=== PATIENT | female | born 1960 | race Caucasian/White ===

== ENCOUNTER 2020-09-27 12:01 | Outpatient (REF) | payer MEDICARE, MEDICAID, SELFPAY ==
--- NOTE | 2020-09-27 | XR_ITS ---
EXAMINATION: XR CHEST CLINICAL INFORMATION: Cough COMPARISON: Chest radiographs 09/01/2019, 02/06/2019 TECHNIQUE: 2 views of the chest were obtained. FINDINGS: There is no lobar or segmental airspace consolidation. Some areolar tissue again noted adjacent to left cardiac border is similar to prior studies. There is no airspace consolidation or groundglass opacity or effusion. The heart is normal in size and the hilar and mediastinal contours are unremarkable. No acute bony abnormality. There is calcific tendinosis adjacent to left humeral head. XR/XR chest 2V IMPRESSION: Unremarkable examination.
== END 2020-09-27 12:02 | disposition home or self-care (01) ==
LOC: HO.HMGCX 12:01
PROVIDERS: Visit Provider Internal Medicine Critical Care Medicine
DX: R05 Cough (principal); J43.9 Emphysema, unspecified
CPT/HCPCS: 71046

== ENCOUNTER 2020-11-01 09:17 | Outpatient (REF) | payer MEDICARE, MEDICAID, SELFPAY ==
[2020-11-01 10:34] LABS: MANUAL DIFF FLAG NO
[2020-11-01 10:35] LABS: Basophils Percent Auto 0.4 % (0-2); Eosinophils Absolute Auto 0.2 X10*3/uL (0.0-0.4); Eosinophils Percent Auto 3.1 % (0-4); Hematocrit 39.7 % (37-47); Hemoglobin 12.5 g/dl (12.0-16.0); Imm Gran Abs Auto 0.02 X10*3/uL (0.00-0.03); Imm Gran Pct Auto 0.3 % (0.0-0.4); Lymphocytes Absolute Auto 1.2 X10*3/uL (1.2-4.9); Lymphocytes Percent Auto 15.6 % (20-40); Mean Corpuscular HGB Conc 31.5 g/dl (31.0-35.0); Mean Corpuscular Volume 95.4 fL (80-98); Mean Platelet Volume 10.4 fL (9.4-12.3); Monocytes Absolute Auto 0.7 X10*3/uL (0.1-1.2); Monocytes Percent Auto 9.9 % (2-11); Neutrophils Absolute Auto 5.3 X10*3/uL (2.0-8.3); Neutrophils Percent Auto 70.7 % (45-73); Platelet Count 287 X10*3/uL (160-400); Red Blood Count 4.16 X10*6/uL (4.20-5.50); Red Cell Distribution Width 12.8 % (11.0-16.0); White Blood Count 7.5 X10*3/uL (4.8-10.8)
[2020-11-01 11:07] LABS: Alanine Aminotransferase 15 U/L (0-31); Albumin Level 4.5 g/dL (3.5-5.0); Alkaline Phosphatase 97 U/L (39-117); Aspartate Amino Transferase 18 U/L (5-31); Bilirubin Total 0.6 mg/dL (0.0-1.0); Blood Urea Nitrogen 23 mg/dL (9-16); Calcium 10.2 mg/dL (8.4-10.2); Estimated Glomerular Filt Rate > 60; Glucose Random 90 mg/dL (60-115); Total Protein 6.9 g/dL (6.5-8.0)
[2020-11-01 11:25] LABS: Anion Gap 11 (12-20); Carbon Dioxide 41 mmol/L (22-29); Chloride 93 mmol/L (96-108); Potassium 4.3 mmol/L (3.3-5.1); Sodium 141 mmol/L (135-145)
[2020-11-01 12:43] LABS: Pt Ventilation O2% 2 L
[2020-11-01 12:47] LABS: Base Excess ABG 12.3; HCO3 ABG 40 mmol/L (22-26); PO2 ABG 98 mmHg (83-108)
[2020-11-01 12:50] LABS: pH ABG 7.38 (7.35-7.45)
[2020-11-01 12:54] LABS: ABG PCO2 67 mmHg (32-45)
== END 2020-11-01 09:18 | disposition home or self-care (01) ==
LOC: HO.LAB 09:17
PROVIDERS: PCP Internal Medicine; Visit Provider Internal Medicine
DX: J44.9 Chronic obstructive pulmonary disease, unspecified (principal); F32.9 Major depressive disorder, single episode, unspecified; F41.9 Anxiety disorder, unspecified
CPT/HCPCS: 36415; 80053; 82803; 85025

== ENCOUNTER 2020-11-06 14:03 | Outpatient (REF) | payer MEDICARE, MEDICAID, SELFPAY ==
--- NOTE | ~2020-11-06 | MM_ITS ---
EXAMINATION: MM SCREENING DIGITAL BREAST TOMOSYNTHESIS, BILATERAL CLINICAL INFORMATION: Screening. Asymptomatic. The lifetime risk of breast cancer based on the Tyrer-Cuzick Model is 6%. COMPARISON: Mammography: 11/01/2019, 10/26/2018, 04/08/2018 TECHNIQUE: Digital breast tomosynthesis is performed in both the craniocaudal and mediolateral oblique views along with computer-aided detection (CAD). Synthesized 2D images are generated from the tomosynthesis. Additional left CC view is provided. FINDINGS: There are scattered areas of fibroglandular density (ACR BI-RADS breast composition Category b). Parenchymal pattern is similar to prior studies. There is no interval mass or developing density or architectural abnormality. No abnormal calcifications. Incidental small right axillary tail node on MLO view is stable. Again, there are stable grouped benign coarse calcifications anterior 3:30 o'clock right breast and some dermal calcifications again seen posterior medial left breast. MM/MM tomosynthesis screening BI IMPRESSION: No mammographic evidence of malignancy. ASSESSMENT: BI-RADS 2: Benign RECOMMENDATION: Routine annual mammography screening. This patient's information was entered into a reminder system with a target due date for their next mammogram.
== END 2020-11-06 14:04 | disposition home or self-care (01) ==
LOC: HO.MAMMO 14:03
PROVIDERS: PCP Internal Medicine; Visit Provider Internal Medicine
DX: Z12.31 Encounter for screening mammogram for malignant neoplasm of breast (principal)
CPT/HCPCS: 77063; 77067

== ENCOUNTER 2020-11-08 12:14 | Outpatient (REF) | payer MEDICARE, MEDICAID, SELFPAY ==
[2020-11-08 12:49] LABS: HCO3 ABG 40 mmol/L (22-26); PO2 ABG 83 mmHg (83-108)
[2020-11-08 12:54] LABS: ABG PCO2 63 mmHg (32-45)
== END 2020-11-08 12:15 | disposition home or self-care (01) ==
LOC: HO.LAB 12:14
PROVIDERS: PCP Internal Medicine; Visit Provider Internal Medicine
DX: J44.9 Chronic obstructive pulmonary disease, unspecified (principal)
CPT/HCPCS: 82803

== ENCOUNTER 2020-12-11 12:36 | Outpatient (REF) | payer MEDICARE, MEDICAID, SELFPAY ==
[2020-12-11 13:56] LABS: ABG pH 7.42 (7.35-7.45); ABG pO2 103 mmHg (83-108)
[2020-12-11 13:57] LABS: ABG Base Excess 12.6 mmol/L; ABG HCO3 39 mmol/L (22-26)
[2020-12-11 13:59] LABS: ABG pCO2 59 mmHg (32-45)
== END 2020-12-11 12:37 | disposition home or self-care (01) ==
LOC: HO.LAB 12:36
PROVIDERS: PCP Internal Medicine; Visit Provider Internal Medicine
DX: Z13.89 Encounter for screening for other disorder (principal)

== ENCOUNTER 2021-05-23 17:55 | Emergency (ER) | payer MEDICARE, MEDICAID, SELFPAY ==
[2021-05-23] MEDS: EPINEPHrine 1 MG/ML VIAL IVPUSH (18:00)
[2021-05-23 18:22] LABS: COVID-19 Test Negative (Negative)
--- NOTE | 2021-05-23 18:34 | ED_ITS ---
HPI - CPR General Chief Complaint: Cardiac Arrest/CPR Stated Complaint: CARDIAC ARREST Time Seen by Provider: 05/23/21 18:05 Source: family and EMS Mode of arrival: EMS Limitations: other (Cardiac arrest) History of Present Illness HPI narrative: 61-year-old female who presents emergency department for evaluation of found unresponsive. According to the family, the patient has had a cold which involved nasal congestion and a cough x2 days. The patient was taking Mucinex for the cough. Family states that the patient went into her room at about noon time. Family member went to check on the patient and found the patient lying face down in her bed, unresponsive. The patient was apparently incontinent of urine. Patient was unresponsive. 911 was activated. Paramedics found the patient to be warm. The patient had no spontaneous respirations. She had no pulses. The the patient was intubated and the 1st rhythm was asystole. The patient was treated with epinephrine x7 doses, CPR was done with a [place] device. The paramedics state that throughout the entire resuscitation the patient was asystolic with no return of spontaneous circulation. Presentation to the emergency department, the patient was unresponsive with no pulses. Her initial rhythm was asystole. She was getting CPR through the [place] device. Patient was given epinephrine 1 mg IV. After 2 minutes, pulse recheck revealed that she had no pulse, she was asystolic on the monitor. The patient was pronounced at 6:02 p.m. The patient's family (sister, 2 daughters, and niece) were here in the emergency department. I did inform them of the patient's . Related Data Home Medications Medication Instructions Recorded Confirmed roflumilast 500 mcg tablet 500 mcg PO DAILY 10/30/20 03/07/21 theophylline 300 mg 300 mg PO DAILY tab 10/30/20 03/07/21 tablet,extended release,12 hr tofacitinib 11 mg tablet,extended 11 mg PO DAILY 10/30/20 03/07/21 release 24 hr Previous Rx's Medication Instructions Recorded bupropion HCl 300 mg 24 hr tablet, 300 mg PO QAM #90 tab 06/15/20 extended release (Wellbutrin XL) lisinopril 2.5 mg tablet 2.5 mg PO DAILY #90 tab 06/15/20 hydrochlorothiazide 12.5 mg tablet 12.5 mg PO DAILY #90 tab 07/24/20 tiotropium bromide 2.5 2 puff INHALATION BEDTIME #4 g 07/24/20 mcg/actuation mist for inhalation (Spiriva Respimat) tiotropium bromide 18 mcg capsule 1 cap INHALATION DAILY #90 inh 09/17/20 with inhalation device (Spiriva with HandiHaler) albuterol sulfate 2.5 mg/0.5 mL 2.5 mg INHALATION Q6H 30 Days #60 10/24/20 solution for nebulization ea albuterol sulfate 2.5 mg INHALATION Q6H PRN #300 cap 01/08/21 montelukast 10 mg tablet 10 mg PO BEDTIME #90 tab 01/17/21 loratadine 10 mg tablet 10 mg PO DAILY #30 cap 01/29/21 Lightweight wheelchair #1 ea 02/13/21 budesonide-formoterol HFA 160 2 puff INHALATION Q12H #10.2 g 02/14/21 mcg-4.5 mcg/actuation aerosol inhaler (Symbicort) doxycycline hyclate 100 mg tablet 100 mg PO BID #14 tab 03/07/21 fluconazole 150 mg tablet 150 mg PO Q OTHER DAY 3 Days #2 tab 03/07/21 albuterol sulfate 90 mcg/actuation 1 puff INHALATION QID #8.5 g 03/12/21 aerosol inhaler (Ventolin HFA) ibuprofen 800 mg tablet 800 mg PO TID #90 tab 03/12/21 lorazepam 0.5 mg tablet 0.5 mg PO DAILY PRN #30 tab 03/26/21 prednisone 20 mg tablet 20 mg PO .COMPLEX #18 tab 05/17/21 Allergies Allergy/AdvReac Type Severity Reaction Status Date / Time sulfasalazine Allergy Unknown unknown Verified 03/07/21 10:29 Review of Systems Review of Systems: Yes Other (Unobtainable secondary to cardiac arrest) [facility] Past Medical History Medical History Allergic rhinitis Anxiety Anxiety Depression End stage chronic obstructive pulmonary disease HTN (hypertension) Hyperlipidemia Rheumatoid arthritis Surgical History H/O colonoscopy No pertinent past surgical history Family History Family History Father CVD (cardiovascular disease) Mother CVD (cardiovascular disease) Social History Social History Alcohol intake: current Alcohol intake frequency: holidays/special occasions only Advance Directives: No Advance Directives Information Provided: No Physical Exam Const: Other: Patient intubated, [place] device is providing CPR, no spontaneous movement. No spontaneous respirations. No palpable pulses. HENMT: Other: No evidence of head trauma, pupils are fixed and dilated. Neck: Other: No evidence of trauma Chest: Other: [place] device is providing CPR to the chest. Resp: Other: No spontaneous respirations, the patient is intubated and respirations are being given by bag-valve mask, symmetric breath sounds bilaterally with BVM. Cardio: Other: No spontaneous heart sounds GI: Other: Abdomen is obese, no ecchymosis or bruising noted to the abdominal wall Back/Spine/Pelvis: Other: No ecchymosis or trauma noted to the patient's back Skin: Other: Cyanotic Neuro: Other: No spontaneous movement Extrem: Other: No evidence of trauma Course Course Course Narrative: 61-year-old female who was found unresponsive in her room by her family, who was ill for several days with cold-like symptoms. When the paramedics found the patient she was not breathing had no palpable pulses and was asystolic. The paramedics attempted to resuscitate her for approximately 30 minutes with intubation, bag-valve mask ventilation, CPR through a [place] device and IV epinephrine x7 doses. The paramedics had no change in the patient's rhythm and no return of spontaneous circulation. On presentation the patient was asystolic with no pulses, no spontaneous respirations. Patient was given 1 round of epinephrine 1 mg IV and CPR was continued via the [place] device, respiratory also assisted the patient's ventilation with a bag-valve mask. After 2 minutes, the patient remained asystolic, no return of spontaneous circulation was detected. The patient was pronounced at 6:02 p.m. A sample for COVID-19 was tested and this was negative. 1942: I did contact the medical equipment technician and the medical equipment technician's office dec lined jurisdiction. Case # [id number] MDM - Cardiac Arrest/CPR Lab Data Labs: Lab Results 05/23/21 05/23/21 Range/Units 17:58 18:01 POC Glucose 68 (60-115) mg/dL COVID-19 (ERIKA) Negative (Negative) COVID-19 Clin Com See Note Discharge Plan Discharge Clinical Impression: Cardiac arrest, due to cardiac arrest Patient Disposition: Prescriptions: No Action bupropion HCl [Wellbutrin XL] 300 mg tablet extended release 24 hr 300 mg PO QAM Qty: 90 RF: 3 lisinopril 2.5 mg tablet 2.5 mg PO DAILY Qty: 90 RF: 3 Spiriva with HandiHaler 18 mcg capsule, w/inhalation device 1 cap inhalation DAILY Qty: 90 RF: 3 albuterol sulfate 2.5 mg/0.5 mL solution for nebulization 2.5 mg inhalation Q6H 30 Days Qty: 60 RF: 0 albuterol sulfate 2.5 mg /3 mL (0.083 %) solution for nebulization 2.5 mg inhalation Q6H PRN (Reason: shortness of breath or wheezing) Qty: 300 RF: 2 montelukast 10 mg tablet 10 mg PO BEDTIME Qty: 90 RF: 0 (DME) Lightweight wheelchair See Rx Instructions .Route .MEDSUPPLY Qty: 1 RF: 0 budesonide-formoterol [Symbicort] 160-4.5 mcg/actuation HFA aerosol inhaler 2 puff inhalation Q12H Qty: 10.2 RF: 3 albuterol sulfate [Ventolin HFA] 90 mcg/actuation HFA aerosol inhaler 1 puff inhalation QID Qty: 8.5 RF: 5 ibuprofen 800 mg tablet 800 mg PO TID Qty: 90 RF: 4 lorazepam 0.5 mg tablet 0.5 mg PO DAILY PRN (Reason: anxiety) Qty: 30 RF: 0 prednisone 20 mg tablet 20 mg PO .COMPLEX Qty: 18 RF: 0 doxycycline hyclate 100 mg tablet 100 mg PO BID Qty: 14 RF: 0 fluconazole 150 mg tablet 150 mg PO Q OTHER DAY 3 Days Qty: 2 RF: 0 Spiriva Respimat 2.5 mcg/actuation mist 2 puff inhalation BEDTIME Qty: 4 RF: 3 hydrochlorothiazide 12.5 mg tablet 12.5 mg PO DAILY Qty: 90 RF: 3 Xeljanz XR 11 mg tablet extended release 24 hr 11 mg PO DAILY RF: 0 Daliresp 500 mcg tablet 500 mcg PO DAILY RF: 0 theophylline 300 mg tablet extended release 12 hr 300 mg PO DAILY RF: 0 loratadine 10 mg tablet 10 mg PO DAILY Qty: 30 RF: 5 Date/Time: 05/23/21 18:02
[2021-05-23 18:41] LABS: Glucose, Whole Blood 68 mg/dL (60-115)
== END 2021-05-23 20:10 | disposition expired ==
PROVIDERS: Emergency Provider Emergency Medicine Emergency Medical Services; PCP Internal Medicine
DX: I46.9 Cardiac arrest, cause unspecified (principal); Z79.899 Other long term (current) drug therapy; Z20.822 Contact with and (suspected) exposure to COVID-19
CPT/HCPCS: 36415; 82947; 87635; 96374; 99281; 99285; J0171